=== PATIENT | female | born 1990 | race Caucasian/White ===

== ENCOUNTER 2019-01-31 19:27 | Emergency (ER) | payer BC, OTHER ==
[2019-01-31 20:01] VITALS: BP 113/74
--- NOTE | 2019-01-31 20:02 | UC ---
Dental HPI - HPI Summary HPI Summary: Patient presents to urgent care with pain and discomfort progressive over the last several days of her right upper tooth. Patient was at her primary care yesterday. Patient was put on Augmentin for possible sinus infection. Patient states today he was clear the pain was related to tooth and tightness and swelling on the lateral aspect. Patient states tender to palpation. No chewing. Patient does have a On the affected tooth. No fevers or chills. No ear pain. Not immunocompromised. Patient took 600 mg of Motrin with mild improvement. Patient has taken 2 doses of the Augmentin. Patient was concerned related to the swelling so came here. Patient's medications reviewed this visit. Patient is not . - History of Current Complaint Chief Complaint: UCDentalProblem Stated Complaint: DENTAL COMPLAINT Time Seen by Provider: 01/31/19 20:01 Hx Obtained From: Patient Hx Last Menstrual Period: 01/26/19 Pain Intensity: 8 - Allergies/Home Medications Allergies/Adverse Reactions: Allergies Allergy/AdvReac Type Severity Reaction Status Date / Time No Known Allergies Allergy Verified 01/31/19 20:01 Home Medications: Home Medications Amoxicillin/Clavulanate TAB* [Augmentin TAB 875*] 875 mg PO BID 01/31/19 [ History Confirmed 01/31/19] Ibuprofen TAB* [Motrin TAB* 600 MG] 600 mg PO Q8H PRN 01/31/19 [History Confirmed 01/31/19] PMH/Surg Hx/FS Hx/Imm Hx Previously Healthy: Yes - Surgical History Surgical History: Yes Surgery Procedure, Year, and Place: pituitary adenoma removed may of 2015- [facility] - Family History Known Family History: Positive: Non-Contributory - Social History Occupation: Employed Full-time Lives: With Family Alcohol Use: None Substance Use Type: None Smoking Status (MU): Never Smoked Tobacco Review of Systems All Other Systems Reviewed And Are Negative: Yes Constitutional: Positive: Negative Skin: Positive: Negative Eyes: Positive: Negative ENT: Positive: Dental Pain Respiratory: Positive: Negative Cardiovascular: Positive: Negative Physical Exam - Summary Physical Exam Summary: Vital Signs Reviewed: Yes A+Ox3, no distress Eyes: Conjunctiva Clear Eyes: Conjunctiva Clear, DC. EOM intact and full ENT: Hearing grossly normal TM x 2 clear, turbinates wnl #2 with abscess on buccal aspect of gumline. Gentle milking with purulent discharge no bleeding Neck: Positive: Supple neck: supple Respiratory: Positive: No respiratory distress, No accessory muscle use Cardiovascular: skin color reflect adequate perfusion Musculoskeletal Exam: DAUGHERTY x 4 without difficulty Neurological: Positive: Alert, ambulatory without difficulty Psychological: Positive: Normal Response To Family Skin: Positive: no rash, no ecchymosis Triage Information Reviewed: Yes Vital Signs: Initial Vital Signs Temp 98.9 F 01/31/19 19:56 Pulse 68 01/31/19 19:56 Resp 16 01/31/19 19:56 BP 113/74 01/31/19 19:56 Pulse Ox 100 01/31/19 19:56 Dental Complaint Course/Dx - Course Course Of Treatment: Patient presents to urgent care with 3 days of progressive right dental pain. Patient is a little sensitive to touch. Patient was seen by her primary as. Patient states today she noticed some swelling on the buccal membranes are she came to urgent care. On exam vital signs are stable. Patient with small abscess at the gumline. No bleeding. Gentle milking milking release purulent discharge. No odor. No bleeding. Discussed with patient regarding treatment plan. Swish and spit with warm salt water. Patient given viscous lidocaine to take for pain. Review Motrin, Tylenol dosing. continue abx dental list given return precautions - Differential Dx/Diagnosis Provider Diagnosis: Dental abscess Discharge - Sign-Out/Discharge Documenting (check all that apply): Patient Departure All imaging exams completed and their final reports reviewed: No Studies - Discharge Plan Condition: Stable Disposition: HOME Prescriptions: Chlorhexidine MW 0.12% 473ML* [Peridex Mouth Wash 0.12%*] 15 ml .SEE ORDER Q3HR #1 btl Lidocaine 2% VISCOUS* [Xylocaine 2% Viscous*] 15 ml SWISH SPIT Q6HR #1 btl Patient Education Materials: Dental Abscess (ED) Referrals: Umm Gentile MD [Primary Care Provider] - Additional Instructions: - Okay to alternate ibuprofen (Advil, Motrin) 600mg and Tylenol 1000mg every 3 hours for pain. Take with food. Do NOT take for more than 4-5 days -Swish and spit with prescription medication as prescribed -Take antibiotics as prescribed until gone - Okay to cover area with thin layer of lidocaine for pain as instructed. -Contact a clinic or go to the walk in clinic from the list provided to you today. If you develop swelling inside your mouth, difficulty with chewing or any other concerns it is recommended you go to the emergency department for further management - Billing Disposition and Condition Condition: STABLE Disposition: Home
[2019-01-31] MEDS ORDERED: Lidocaine 2% VISCOUS* 15 ML UDC PO ONE (20:39)
== END 2019-01-31 20:57 | disposition home or self-care (01) ==
LOC: UCCORT 19:27
DX: K04.7 Periapical abscess without sinus (principal)
CPT/HCPCS: 99212; G0463